=== PATIENT | male | born 1970 | race Caucasian/White ===

== ENCOUNTER 2016-08-21 13:54 | Inpatient (IN) | payer MEDICAID ==
[2016-08-21] VITALS (7 sets, daily range): BP systolic 112–145; BP diastolic 55–100
[~2016-08-21] VITALS: Ht 182.9 cm; Wt 103.1 kg
[2016-08-21] MEDS ORDERED: ACTIVATED CHARCOAL 25 GM/120 ML TUBE PO ONE (14:30)
[2016-08-21] MEDS ORDERED: IV NS 0.9% 1,000 ML BAG IV ONE (14:30)
[2016-08-21] MEDS ORDERED: NALOXONE PREFILLED SYRINGE 2 MG/2 ML SYRINGE ONE (14:48)
[2016-08-21] MEDS ORDERED: IV NS 0.9% 1,000 ML ONE (14:55)
[2016-08-21] MEDS ORDERED: IV SET PRIMARY 1 EA INFUS.SET MC ONE (14:55)
[2016-08-21 14:58] LABS: BASOPHILS # (AUTO) 0.3 /CMM (0.0-0.2); BASOPHILS % (AUTO) 2.3 % (0.0-2.0); DIFF TOTAL % 100 %; EOSINOPHILS # (AUTO) 0.2 /CMM (0.0-0.7); EOSINOPHILS % (AUTO) 1.9 % (0.0-6.0); HEMATOCRIT 49 % (39-51); HEMOGLOBIN 16.2 g/dL (13.5-17.5); LYMPHOCYTES # (AUTO) 2.4 /CMM (0.8-4.8); LYMPHOCYTES % (AUTO) 20.4 % (20.0-44.0); MEAN CORPUSCULAR HEMOGLOBIN 29 PG (26.0-33.0); MEAN CORPUSCULAR HGB CONC 33 g/dl (31.0-36.0); MEAN CORPUSCULAR VOLUME 87 fL (80-96); MONOCYTES # (AUTO) 0.7 /CMM (0.1-1.30); NEUTROPHILS # (AUTO) 8.2 /CMM (1.8-8.9); NEUTROPHILS % (AUTO) 69.4 % (43.0-81.0); PLATELET COUNT (AUTO) 294 /CMM (150-450); RED BLOOD CELL COUNT(AUTO) 5.62 MIL/uL (4.5-6.0); WHITE BLOOD COUNT (AUTO) 11.8 K/uL (4.3-11.0)
[2016-08-21] MEDS ORDERED: ACTIVATED CHARCOAL 25 GM/120 ML TUBE ONE ×2 (15:05→15:22)
[2016-08-21 15:08] LABS: ANION GAP 14 (5-14); CALCIUM, SERUM 8.9 mg/dL (8.5-10.1); CARBON DIOXIDE 23 mmol/L (21-32); CHLORIDE 108 mmol/L (98-107); CREATININE 0.9 mg/dL (0.6-1.3); GFR 90 mL/min (>60); GLUCOSE 93 mg/dL (74-106); POTASSIUM 3.7 mmol/L (3.5-5.1); SODIUM SERUM 142 mmol/L (136-145); UREA NITROGEN, BLOOD 18 mg/dL (7-18)
[2016-08-21 15:14] LABS: ACETAMINOPHEN 0 ug/ml (10-30); ALANINE AMINOTRANSFERASE 45 U/L (12-78); ALBUMIN 3.5 g/dL (3.4-5.0); ASPARTATE AMINOTRANSFERASE 15 U/L (15-37); BILIRUBIN,DIRECT 0.1 mg/dL (0.0-0.2); BILIRUBIN,TOTAL 0.8 mg/dL (0.2-1.0); INDIRECT BILIRUBIN 0.7 mg/dL (0.0-1.1); SALICYLATE 2.2 mg/dL (2.8-20.0); TOTAL PROTEIN, SERUM 7.7 g/dL (6.4-8.2)
[2016-08-21 15:53] LABS: ADD UA MICROSCOPIC NO; KETONES,URINE Negative (NEGATIVE); LEUKOCYTE ESTERASE ,URINE Negative (NEGATIVE); PH,URINE 5.5 (5.0-8.0)
[2016-08-21 16:06] LABS: CANNABINOID, URINE POSITIVE (NEGATIVE); PHENCYCLIDINE SCREEN,URINE NEGATIVE (NEGATIVE)
[2016-08-21] MEDS ORDERED: NALOXONE PREFILLED SYRINGE 2 MG/2 ML SYRINGE IV ONE (16:30)
[2016-08-21] MEDS ORDERED: Z GUARD REMEDY 2 OZ OINT TP PRN (16:30)
[2016-08-21] MEDS ORDERED: ZOLPIDEM TARTRATE 5 MG TABLET PO PRN (16:30)
[2016-08-21] MEDS ORDERED: ONDANSETRON HCL/PF 4 MG/2 ML VIAL IVP PRN (16:30)
[2016-08-21] MEDS ORDERED: NALOXONE HCL 2 MG in IV D5W 245 ML IV PRN ×2 (16:30→18:00)
[2016-08-21] MEDS ORDERED: MAGNESIUM HYDROXIDE 30 ML UDC PO PRN (16:30)
[2016-08-21] MEDS ORDERED: MAG HYDROX/AL HYDROX/SIMETH 30 ML UDC PO PRN (16:30)
[2016-08-21] MEDS ORDERED: IV SET PRIMARY PUMP SET 1 EA INFUS.SET MC ONE (17:33)
[2016-08-21] MEDS: IV NS 0.9% 1,000 ML IV PRN (17:38)
[2016-08-21 19:25] LABS: ABG HCO3 21.6 mmol/L; ABG PCO2 33.6 mmHg (35.0-45.0); ABG PH 7.425 (7.350-7.450); ABG PO2 80.1 mmHg (75.0-100.0); ABG TOTAL HEMOGLOBIN 15.4 G/dL (13.5-18.0); ALLEN TEST Pass; AaDO2 29.4 mmHg; O2Hb 93.2 % (94.0-97.0)
[2016-08-21] MEDS ORDERED: HALOPERIDOL LACTATE INJ 5 MG/ML VIAL IM PRN (20:00)
[2016-08-21] MEDS: BENZTROPINE MESYLATE (1 MG) 1 MG TABLET PO SCH (20:38)
[2016-08-21] MEDS: HALOPERIDOL 5 MG TABLET PO SCH (20:38)
[2016-08-22] VITALS (26 sets, daily range): BP systolic 129–171; BP diastolic 69–105
[2016-08-22 05:13] LABS: BASOPHILS % (AUTO) 0.4 % (0.0-2.0); DIFF TOTAL % 100 %; EOSINOPHILS # (AUTO) 0.2 /CMM (0.0-0.7); EOSINOPHILS % (AUTO) 1.8 % (0.0-6.0); HEMATOCRIT 43 % (39-51); HEMOGLOBIN 14.3 g/dL (13.5-17.5); LYMPHOCYTES # (AUTO) 1.8 /CMM (0.8-4.8); LYMPHOCYTES % (AUTO) 17.1 % (20.0-44.0); MEAN CORPUSCULAR HEMOGLOBIN 29 PG (26.0-33.0); MEAN CORPUSCULAR HGB CONC 33 g/dl (31.0-36.0); MEAN CORPUSCULAR VOLUME 87 fL (80-96); MONOCYTES # (AUTO) 0.6 /CMM (0.1-1.30); MONOCYTES % (AUTO) 5.7 % (2.0-12.0); NEUTROPHILS # (AUTO) 7.7 /CMM (1.8-8.9); PLATELET COUNT (AUTO) 277 /CMM (150-450); RED BLOOD CELL COUNT(AUTO) 4.96 MIL/uL (4.5-6.0); WHITE BLOOD COUNT (AUTO) 10.3 K/uL (4.3-11.0)
[2016-08-22 05:30] LABS: CALCIUM, SERUM 8.7 mg/dL (8.5-10.1); CREATININE 0.9 mg/dL (0.6-1.3); PHOSPHORUS 3.1 mg/dL (2.5-4.9); POTASSIUM 3.8 mmol/L (3.5-5.1)
[2016-08-22 05:47] LABS: THYROID STIMULATING HORMONE 1.986 uIU/mL (0.358-3.74)
[2016-08-22] MEDS: IV NS 0.9% 1,000 ML IV PRN (07:18)
[2016-08-22] MEDS: BENZTROPINE MESYLATE (1 MG) 1 MG TABLET PO SCH ×2 (08:38→16:29)
[2016-08-22] MEDS: HALOPERIDOL 5 MG TABLET PO SCH ×2 (08:38→16:29)
[2016-08-22] MEDS: PANTOPRAZOLE 40 MG TABLET.DR PO SCH (08:39)
[2016-08-22] MEDS ORDERED: CLONIDINE HCL 0.1 MG TABLET PO PRN (10:00)
[2016-08-22] MEDS ORDERED: ZOLPIDEM TARTRATE 5 MG TABLET PO PRN (22:00)
[2016-08-23 08:00] VITALS: BP 143/90
[2016-08-23] MEDS: PANTOPRAZOLE 40 MG TABLET.DR PO SCH (08:14)
[2016-08-23] MEDS: BENZTROPINE MESYLATE (1 MG) 1 MG TABLET PO SCH ×2 (08:15→17:14)
[2016-08-23] MEDS: HALOPERIDOL 5 MG TABLET PO SCH ×2 (08:15→17:14)
[2016-08-23] MEDS: SERTRALINE HCL 50 MG TABLET PO SCH (15:12)
[2016-08-23 16:00] VITALS: BP 134/100
[2016-08-23] MEDS ORDERED: ENOXAPARIN SODIUM 40 MG/0.4 ML DISP.SYRIN SQ SCH (17:00)
[2016-08-23] MEDS: ACETAMINOPHEN 325 MG TABLET PO PRN (17:18)
[2016-08-23 20:00] VITALS: BP 125/75
[2016-08-24 08:00] VITALS: BP 121/82
[2016-08-24] MEDS: PANTOPRAZOLE 40 MG TABLET.DR PO SCH (08:03)
[2016-08-24] MEDS: HALOPERIDOL 5 MG TABLET PO SCH (08:03)
[2016-08-24] MEDS: BENZTROPINE MESYLATE (1 MG) 1 MG TABLET PO SCH (08:03)
[2016-08-24 08:27] VITALS: BP 121/82
[2016-08-24] MEDS: SERTRALINE HCL 50 MG TABLET PO SCH (09:02)
[2016-08-24] MEDS: ACETAMINOPHEN 325 MG TABLET PO PRN (10:39)
== END 2016-08-24 15:00 | DRG 812 ==
LOC: ER 13:56 → ICU 16:21 → MEDSG2 08-22 16:40
PROVIDERS: ADMIT Student in an Organized Health Care Education/Training Program; ATTEND Student in an Organized Health Care Education/Training Program
PROC: 05H533Z Insertion of Infusion Device into Right Subclavian Vein, Percutaneous Approach (ICD-10-PCS; principal; 2016-08-21)
DX: T40.602A Poisoning by unspecified narcotics, intentional self-harm, initial encounter (principal); F29 Unspecified psychosis not due to a substance or known physiological condition; F32.9 Major depressive disorder, single episode, unspecified; T42.4X2A Poisoning by benzodiazepines, intentional self-harm, initial encounter; Y92.89 Other specified places as the place of occurrence of the external cause; Z59.0 Homelessness; Z91.5 Personal history of self-harm; E66.9 Obesity, unspecified
CPT/HCPCS: 36415; 36600; 71010-TC; 80048-TC; 80061-TC; 80076-TC; 80305; 81000-TC; 82803-TC; 83735-TC; 84100-TC; 84443-TC; 85025-TC; 87081-TC; A4606; G0480; G6039-TC; J1650; J2310; J7030; J7060; Z7610

== ENCOUNTER 2016-08-24 16:00 | Emergency (ER) | payer MEDICAID ==
[2016-08-24] MEDS ORDERED: CLONIDINE HCL 0.1 MG TABLET ONE (20:10)
[2016-08-24] MEDS ORDERED: CLONIDINE HCL 0.1 MG TABLET PO ONE (21:00)
== END 2016-08-24 20:22 | disposition home or self-care (01) ==
DX: R53.1 Weakness (principal); R42 Dizziness and giddiness
CPT/HCPCS: 36415; 80048; 80305; 81001; 85025; 99284; A4606; Z7610

== ENCOUNTER 2016-08-24 21:04 | Emergency (ER) | payer MEDICAID ==
[~2016-08-24] VITALS: Ht 182.9 cm; Wt 103.0 kg
[2016-08-24] MEDS ORDERED: AMLODIPINE BESYLATE 5 MG TABLET ONE (21:27)
[2016-08-24] MEDS ORDERED: AMLODIPINE BESYLATE 5 MG TABLET PO ONE (21:30)
[2016-08-25 00:33] VITALS: BP 138/82
== END 2016-08-25 00:34 | disposition home or self-care (01) ==
LOC: ER 21:05
DX: I10 Essential (primary) hypertension (principal)
CPT/HCPCS: 99283; A4606; Z7610